=== PATIENT | female | born 1960 | race Caucasian/White ===

== ENCOUNTER 2024-01-07 07:09 | Day surgery (SDC) | payer MEDICARE, SELFPAY ==
[2024-01-07] VITALS (16 sets, daily range): BP systolic 129–179; BP diastolic 64–105; PULSE 68–96; TEMP 36; O2SAT 93–98; BMI 31.8
--- NOTE | 2024-01-07 | FL_ITS ---
The [address] [address] Patient Name: JOHN SHOOK MRN: [id number] date: 1960 Sex: F Assigned Patient Location: [facility] [place] Current Patient Location: Accession/Order Number: [id number] Exam Date: 01/07/2024 08:50 Report Date: 01/11/2024 10:05 At the request of: CRISTINA LEE Procedure: FL fluoroscopy <1hr NON-READ EXAM: FL fluoroscopy <1hr NON-READ HISTORY: TECHNIQUE: FINDINGS: Please see Operative Report. Electronically authenticated by: RADIOLOGIST NO Date: 01/11/2024 10:05
--- NOTE | 2024-01-07 07:20 | ECG_ITS ---
The [facility] Test Date: 2024-01-07 Pat Name: JOHN SHOOK Department: Room: - Gender: Female Rn Cardiovascular Icu: : 1960 Requested By: CRISTINA LEE Order Number: [id number] Reading MD: ELEONORA ROLDAN Measurements Intervals [place] Rate: 70 P: 53 UT: 158 QRS: -2 QRSD: 82 T: 39 QT: 402 QTc: 436 Interpretive Statements SINUS RHYTHM No previous ECG available for comparison Electronically Signed On 01-07-2024 14:28:47 EDT by ELEONORA ROLDAN
[2024-01-07 07:32] LABS: Basophils Absolute Auto 0.1 10^3/uL (0.0-0.1); Basophils Percent Auto 1.2 % (0.2-2.0); Eosinophils Absolute Auto 0.2 10^3/uL (0.0-0.7); Eosinophils Percent Auto 2.6 % (0.9-7.0); Hematocrit 38.5 % (36.0-48.0); Hemoglobin 12.7 g/dL (12.0-16.0); Immature Granulocytes Abs Auto 0.01 10^3/uL (0.00-0.03); Immature Granulocytes Pct Auto 0.2 % (0.0-0.5); Lymphocytes Absolute Auto 1.4 10^3/uL (1.2-3.8); Lymphocytes Percent Auto 20.9 % (20.5-60.0); Mean Corpuscular Hemoglobin 31.1 pg (26.7-34.0); Mean Corpuscular Volume 94.1 fL (81.0-99.0); Mean Platelet Volume 9.7 fL (9.5-13.5); Monocytes Absolute Auto 0.6 10^3/uL (0.3-0.8); Monocytes Percent Auto 8.6 % (1.7-12.0); Neutrophils Absolute Auto 4.3 10^3/uL (1.4-6.5); Neutrophils Percent Auto 66.5 % (43.0-75.0); Platelet Count 275 10^3/uL (150-450); Red Blood Count 4.09 10^6/uL (4.20-5.40); Red Cell Distribution Width 12.8 % (11.0-15.0); White Blood Count 6.5 10^3/uL (4.0-11.0)
[2024-01-07 07:44] LABS: Partial Thromboplastin Time 32.1 sec (22.3-36.2); Prothrombin Time 9.8 sec (9.0-11.6)
[2024-01-07 07:47] LABS: INR <0.93
[2024-01-07 08:03] LABS: Anion Gap 10.6; BUN Creatinine Ratio 21.1; Calcium 9.1 mg/dL (8.5-10.1); Carbon Dioxide 31.2 mmol/L (21.0-32.0); Chloride 98 mmol/L (98-107); Estimated GFR (African America >60 (>=60); Estimated GFR (Non-African Ame >60 (>=60); Glucose 318 mg/dL (74-106); Potassium 4.8 mmol/L (3.5-5.1); Sodium 135 mmol/L (136-145)
[2024-01-07] MEDS: LACTATED RINGER'S SOLUTION 1,000 ML 50 ML IV (08:07)
[2024-01-07] MEDS: CIPROFLOXACIN IN 5 % DEXTROSE 400 MG/200 ML PIGGYBACK 200 MG IV (08:10)
[2024-01-07] MEDS: INSULIN REGULAR 300 UNITS/3 ML 10 UNIT IV (08:38)
--- NOTE | 2024-01-07 09:25 | P.URON_ITS ---
Urology Surgery Operative Note Operative Note Procedure Date: 01/07/24 Time Out Performed: yes Pre-op Diagnosis: Right distal ureteral calculus Post-op Diagnosis: same as pre-op Procedures performed: 1. Cystoscopy. 2. Urethral dilation with [place] sounds to 32 [place]. 3. Right rigid ureteral dilation. 4. Right ureteroscopy. 5. Thulium laser lithotripsy of right ureteral Jag calculus. 6. Stone basket extraction. 7. Placement of 6 [place] variable length right ureteral stent. Anesthesia: GETA Primary Surgeon: Kelechi Mcgraw Complications: None Estimated blood loss (mL): 5 Findings: 1. Distal right ureteral stricture. 2. Distal right ureteral jagged stone. 3. Severe urethral stenosis Specimens: Ureteral calculus Drains: 6 [place] variable length right ureteral stent Indications for Procedures: This lady has a 2 to 3 mm right distal ureteral calculus that she is unable to pass. She is desirous for definitive stone manipulation and possible stent placement. She has signed an informed consent for these procedures after all risks were explained. Detailed description of Procedure: The patient was brought to the operating room and placed on the operating room table in the supine position. SCDs were placed on the lower extremities and turned on and functioning during the entire case. Timeout was done by all parties in the room. We all agreed upon the patient's identification and the planned procedures for this patient. Genn. anesthesia was then administered. The patient was then repositioned into the modified dorsal lithotomy position. All pressure points were satisfactorily padded. Genitalia were sterilely prepped and draped in usual fashion. I started by passing a 22 [place]an Olympus cystoscope per urethra and into the bladder. Her urethra was severely stenosed. It was actually difficult to get the scope in. I then used [place] sounds and dilated her urethra up to 32 [place]an. The scope was passed back in. I then passed a Glidewire through the scope and up the right ureter. There was an immediate E flux of cloudy urine from the ureter. I then used an 10 [place] rigid dilator and dilated the distal right ureter. I could feel the dilator pop through a stricture. After this was removed the scope was removed and I then passed a semirigid ureteroscope through the urethra into the bladder and into the right ureter. I was able to get through the strictured area and proximal to this was a jagged stone. I then passed a 200 ? laser fiber through the scope and made contact with the stone. I then used the thulium laser at 6 W continuous to break up the stone. A 0 tip nitinol basket was used and the stone pieces were extracted out and sent for stone analysis. The ureteroscope was then removed. I then backloaded the cystoscope over the wire and passed it into the bladder. I then slid a 6 [place]an variable length stent over the wire up into the kidney. The wire was removed and there were good curls in the kidney and in the bladder. The bladder was drained of its contents and the scope was then removed. The anesthetic was then reversed. She [facility] and wheeled to PACU in stable condition.
[2024-01-07] MEDS: HYDROMORPHONE HCL 0.5 MG/0.5 ML SYRINGE IV ×2 (09:35→09:42)
[2024-01-07] MEDS: METOCLOPRAMIDE HCL 10 MG/2 ML VIAL IVP (09:35)
[2024-01-07] MEDS: SOLIFENACIN SUCCINATE 10 MG TABLET PO (09:52)
[2024-01-07] MEDS: ONDANSETRON PF 4 MG/2 ML VIAL IV (10:14)
[2024-01-07] MEDS: LACTATED RINGER'S SOLUTION 1,000 ML 100 ML IV ×2 (10:41→11:49)
--- NOTE | 2024-01-07 10:44 | PC.NURSE ---
No further retching noted; no emesis; denies urge to void
--- NOTE | 2024-01-07 11:16 | PC.NURSE ---
Emesis of small amount bile; denies urge to void
[2024-01-07] MEDS: PROMETHAZINE HCL 25 MG SUPP.RECT PR (11:43)
--- NOTE | 2024-01-07 12:26 | PC.NURSE ---
Emesis of large amount bile; medicated with Phenergan suppository as ordered by Dr. Mcgraw; denies urge to void; Dr. José aware of previous blood sugar; no orders received.
--- NOTE | 2024-01-07 12:31 | PC.NURSE ---
Uto bathroom and voids light red urine without difficulty; no clots noted. Retching when getting up to bathroom; small emesis of bile; first emesis since Phenergan given. Back to cart and IV fluids infusing; wants to try ice chips.
--- NOTE | 2024-01-07 13:05 | PC.NURSE ---
No c/o nausea at this time
--- NOTE | 2024-01-07 15:14 | PC.NURSE ---
No further c/o nausea
[2024-01-14 22:06] LABS: Calcium Oxalate Dihydrate 100 % (.); Size 2x2 mm (.)
== END 2024-01-07 13:06 | disposition home or self-care (01) ==
PROVIDERS: PCP Family Medicine; Visit Provider Urology
PROC: (CPT 52356; principal; 2024-01-07 08:50)
DX: N20.1 Calculus of ureter (principal); E11.9 Type 2 diabetes mellitus without complications; N35.92 Unspecified urethral stricture, female; Q62.10 Congenital occlusion of ureter, unspecified; E03.9 Hypothyroidism, unspecified; Z87.442 Personal history of urinary calculi; R30.0 Dysuria; R35.1 Nocturia; Z79.899 Other long term (current) drug therapy; Z79.84 Long term (current) use of oral hypoglycemic drugs; Z79.4 Long term (current) use of insulin; R10.9 Unspecified abdominal pain
CPT/HCPCS: 52356; 36415; 74420; 76000; 80048; 82365; 85025; 85610; 85730; 93005; 99999; J1094; J1170; J2704